=== PATIENT | male | born 1990 | race African-American/Black ===

== ENCOUNTER 2024-08-05 22:38 | Emergency (ER) | payer OTHER ==
[~2024-08-05] VITALS: Ht 167.6 cm; Wt 63.5 kg
[2024-08-05] MEDS ORDERED: ONDANSETRON ODT 4 MG TAB.RAPDIS ONE (23:00)
[2024-08-05] MEDS ORDERED: HYDROCODONE/APAP 10-325 MG TABLET ONE (23:00)
[2024-08-05] MEDS: HYDROCODONE/APAP 10-325 MG TABLET PO ONE (23:03)
[2024-08-05] MEDS: ONDANSETRON ODT 4 MG TAB.RAPDIS SL ONE (23:03)
[2024-08-05] MEDS ORDERED: HYDR-4209 PO (23:30)
[2024-08-05 23:42] VITALS: BP 120/69; TEMP 98.5; O2SAT 99
== END 2024-08-05 23:44 | disposition home or self-care (01) ==
LOC: ER 22:48
DX: S69.81XA Other specified injuries of right wrist, hand and finger(s), initial encounter (principal); F17.210 Nicotine dependence, cigarettes, uncomplicated; Z59.00 Homelessness unspecified; W45.8XXA Other foreign body or object entering through skin, initial encounter; Y93.89 Activity, other specified; Y92.89 Other specified places as the place of occurrence of the external cause; Y99.8 Other external cause status
CPT/HCPCS: 73110; 73130; Q0162